=== PATIENT | female | born 1965 | race Caucasian/White ===

== ENCOUNTER 2020-10-09 23:20 | Emergency (ER) | payer OTHER, SELFPAY ==
--- NOTE | ~2020-10-09 | XR_ITS ---
EXAMINATION: XR knee RT min 4V DATE: 10/09/2020 23:40 INDICATION: Posterior right knee pain post fall. TECHNIQUE: Anteroposterior, 2 oblique and crosstable lateral views of the right knee were obtained COMPARISON: None. FINDINGS: Right total knee arthroplasty without patellar resurfacing which appears well seated in near-anatomic alignment. No periprosthetic lucency to suggest loosening. No evident fracture. There is however a s mall right knee joint effusion with well-defined linear anterior margin appearing suspicious for a la yering lipohemarthrosis. Soft tissues are otherwise unremarkable. IMPRESSION: 1. Right total knee arthroplasty with no evident acute osseous abnormality. There is however a possib le layering lipohemarthrosis raising concern for an occult fracture. Would recommend CT for further e valuation. Reviewed, dictated and finalized at location A. OR INSTRUCTOR IMPRESSION: 1. Right total knee arthroplasty with no evident acute osseous abnormality. The re is however a possible layering lipohemarthrosis raising concern for an occul t fracture. Would recommend CT for further evaluation.
--- NOTE | ~2020-10-09 | CT_ITS ---
EXAMINATION: CT knee RT wo con DATE: 10/10/2020 00:28 INDICATION: Right knee pain. TECHNIQUE: Computed tomography (CT) of the right knee was performed without intravenous contrast. The dose-length product was 674.84 mGy-cm. Automated exposure control and iterative reconstruction techn ique were employed. COMPARISON: Right knee series dated 10/09/2020 FINDINGS: There is right total knee arthroplasty. No fracture or traumatic malalignment. Prosthesis well seated. Orthopedic hardware creates significant streak artifact. Small right knee eff usion. No lipohemarthrosis. IMPRESSION: 1. No acute fracture. Reviewed, dictated and finalized at location B. STOCK AUCTIONEER IMPRESSION: 1. No acute fracture.
[2020-10-09 23:20] VITALS: BP 128/77; PULSE 77; RESP 18; TEMP 36.4; O2SAT 99
--- NOTE | 2020-10-09 23:24 | ED.FALL ---
HPI - Fall General Chief Complaint: Fall Stated Complaint: fall from ladder History of Present Illness HPI Narrative: Climbing down a ladder and missed the last step. [place] the right knee bend to the right side. Severe pain. Unable to bear weight. Previous knee replacement on that side. Denies additional pain or injury. Related Data Allergies Allergy/AdvReac Type Severity Reaction Status Date / Time fluoxetine Allergy Mild eye Verified 10/13/20 10:26 twitching Penicillins Allergy Mild hives Verified 10/13/20 10:26 Review of Systems Review of Systems: All systems reviewed & are unremarkable except as noted in HPI and below Constitutional: Constitutional: Denies fever(s) Cardiovascular: Cardiovascular: Denies chest pain Respiratory: Respiratory: Denies dyspnea Gastrointestinal: Gastrointestinal: Denies nausea Musculoskeletal: Musculoskeletal: Denies back pain Neurologic: Denies numbness and Denies weakness PMFSH Past Medical History Medical History CAD (coronary artery disease) Chronic headaches Generalized anxiety disorder HTN (hypertension) Major depressive disorder, recurrent, moderate Mixed hyperlipidemia Osteoarthritis Surgical History Surgical History H/O heart artery stent History of delivery History of laparoscopic cholecystectomy History of total hysterectomy Status post right partial knee replacement Family History Family History Other Hypertension Social History Social History Social History: Smoking packs per day: 0.25 Smoking cigarettes per day: 5.0 Years smoked: 30 Smoking pack-years: 7.50 Smoking status: Light tobacco smoker Tobacco type: cigarettes Second hand tobacco smoke exposure: Yes Alcohol intake: never Substance use: never Substance use type: does not use Living arrangements: with family Occupation/Education: occupation Gender identity (if verbalized by the patient): Female Sexual Orientation (if Verbalized by the Patient): Straight or Heterosexual Exam Const: General: no acute distress and alert Nutritional Appearance: well nourished Orientation/consciousness: patient oriented x3 HENMT: Head: normal to inspection Resp: Effort & Inspection: normal respiratory effort Auscultation: clear to auscultation bilaterally Cardio: Rate: regular rate Rhythm: regular rhythm Neuro: General: patient oriented x3, moves all extremities and no focal motor deficits Speech: normal speech Extrem: Other: Tenderness over the lateral joint line on the right knee. No obvious deformity. Not tolerating ROM. Course Vital Signs Vital signs: Vital Signs Temperature 36.4 C L 10/09/20 23:20 Pulse Rate 77 10/09/20 23:20 Respiratory Rate 18 10/09/20 23:20 Blood Pressure 128/77 10/09/20 23:20 Pulse Oximetry 99 10/09/20 23:20 Temperature 36.4 C L 10/09/20 23:20 Pulse Rate 78 10/10/20 02:10 Respiratory Rate 17 10/10/20 02:10 Blood Pressure 114/94 H 10/10/20 02:10 Pulse Oximetry 98 10/10/20 02:10 MDM - Fall MDM Narrative Medical decision making narrative: X-ray concerning for possible occult fracture. CT negative. Pain improving and able to ambulate. Differential Diagnosis Differential diagnosis: Likely other (Knee sprain, fracture, contusion) Medical Records Attestation: I reviewed the patient's medical records. Imaging Data Radiologist's impression: ITS Impressions Knee X-Ray 10/09/20 23:54 IMPRESSION: 1. Right total knee arthroplasty with no evident acute osseous abnormality. There is however a possible layering lipohemarthrosis raising concern for an occult fracture. Would recommend CT for further evaluation. Knee CT 10/10/20 08:02 IMPRESSION: 1. No ac
--- NOTE | 2020-10-09 23:33 | PC.NURSE ---
Patient to Radiology
--- NOTE | 2020-10-10 00:24 | PC.NURSE ---
Patient to CT
[2020-10-10 02:10] VITALS: BP 114/94; PULSE 78; RESP 17; O2SAT 98
== END 2020-10-10 02:11 | disposition home or self-care (01) ==
PROVIDERS: Emergency Provider Emergency Medicine; PCP Family Medicine
DX: S83.91XA Sprain of unspecified site of right knee, initial encounter (principal); I25.10 Atherosclerotic heart disease of native coronary artery without angina pectoris; I10 Essential (primary) hypertension; E78.2 Mixed hyperlipidemia; M19.90 Unspecified osteoarthritis, unspecified site; Z95.5 Presence of coronary angioplasty implant and graft; Z96.651 Presence of right artificial knee joint; F17.210 Nicotine dependence, cigarettes, uncomplicated; X50.9XXA Other and unspecified overexertion or strenuous movements or postures, initial encounter
CPT/HCPCS: 73564; 73700; 99284

== ENCOUNTER 2021-05-24 13:26 | Emergency (ER) | payer OTHER, SELFPAY ==
--- NOTE | ~2021-05-24 | XR_ITS ---
EXAMINATION: XR shoulder RT min 2V INDICATION: Right shoulder pain TECHNIQUE: Four views of the right shoulder are submitted. COMPARISON: None FINDINGS: Normal alignment. No fracture. Glenohumeral and acromioclavicular joint spaces are normal. Soft tissues are unremarkable. Moderate cervical spondylosis is noted. IMPRESSION: 1. No acute osseous abnormality. Reviewed, dictated and finalized at location A.
[2021-05-24 13:32] VITALS: BP 143/68; PULSE 93; RESP 16; TEMP 37; O2SAT 99
--- NOTE | 2021-05-24 13:34 | ED.GENADULT ---
HPI - General Adult General Chief complaint: Extremity Injury, Upper Stated complaint: rt shoulder injury Time Seen by Provider: 05/24/21 13:34 Source: patient Mode of arrival: ambulatory Limitations: no limitations History of Present Illness HPI narrative: 55-year-old female patient presents to the [facility] with complaints of right shoulder pain. Patient states that she tripped today and fell face forward into the mud. Patient states that she had her right arm outstretched and almost in a diving position fell forward. Patient states she was not able to get herself up when she fell and her had to help her. Patient is complaining of severe right shoulder pain and is not able to extend the shoulder. Related Data Allergies Allergy/AdvReac Type Severity Reaction Status Date / Time fluoxetine Allergy Mild eye Verified 05/24/21 13:33 twitching Penicillins Allergy Mild hives Verified 05/24/21 13:33 Review of Systems Review of Systems: Narrative: CONSTITUTIONAL: Denies fever, chills, or sweats. EYES: Denies visual changes, redness, or discharge. ENT: Denies rhinorrhea, congestion, sore throat, or otalgia. CARDIOVASCULAR: Denies chest pain, palpitations, or edema. RESPIRATORY: Denies cough or dyspnea. GASTROINTESTINAL: Denies abdominal pain, nausea, vomiting, or diarrhea. GENITOURINARY: Denies dysuria or hematuria. SKIN: Denies rash or itching. MUSCULOSKELETAL: Denies back pain, joint pain, or myalgia. Positive right shoulder pain NEUROLOGIC: Denies headache, numbness, or weakness. PSYCHIATRIC: Denies anxiety or depression. [facility] Past Medical History Medical History CAD (coronary artery disease) Chronic headaches Generalized anxiety disorder HTN (hypertension) Major depressive disorder, recurrent, moderate Mixed hyperlipidemia Osteoarthritis Surgical History Surgical History H/O heart artery stent History of delivery History of laparoscopic cholecystectomy History of total hysterectomy Status post right partial knee replacement Family History Family History Other Hypertension Social History Social History Social History: Smoking packs per day: 0.25 Smoking cigarettes per day: 5.0 Years smoked: 30 Smoking pack-years: 7.50 Smoking status: Light tobacco smoker Tobacco type: cigarettes Second hand tobacco smoke exposure: Yes Alcohol intake: never Substance use: never Substance use type: does not use Gender identity (if verbalized by the patient): Female Comments At the time of my signature I agree with nursing past medical history, surgical, social, and family history. There is no relevant family history pertinent to the presenting complaint. Exam Narrative: Exam Narrative: GENERAL: Well-appearing, well-nourished, and in no acute distress. HEAD: Normocephalic, atraumatic. EYES: PERRLA and EOMI. ENT: Nares clear, no rhinorrhea or epistaxis. Mucous membranes moist. NECK: Supple. No lymphadenopathy CHEST: Clear to auscultation. No respiratory distress. HEART: Regular rate and rhythm. No murmur heard. Normal peripheral pulses. ABDOMEN: Soft, nontender, nondistended, normal active bowel sounds. EXTREMITIES: The R shoulder is without obvious asymmetry or deformity when compared to the L shoulder. No surface trauma, ecchymosis, crepitus. No bony deformity or prominence of the humeral head No erythema, warmth, swelling. tenderness to palpation to the anterior shoulder and clavicle, A to C joint, no tenderness to the acromion, scapula or humeral head. No tenderness to palpation of the bicipital groove or soft tissues. No tenderness to palpation of the muscles of the sterncleidomastoid, pectorals, biceps/triceps, deltoid, trapezius, rhomboid, latissimus d
== END 2021-05-24 14:10 | disposition home or self-care (01) ==
PROVIDERS: Emergency Provider Nurse Practitioner Family; PCP Family Medicine
DX: M25.511 Pain in right shoulder (principal); W01.0XXA Fall on same level from slipping, tripping and stumbling without subsequent striking against object, initial encounter; I25.10 Atherosclerotic heart disease of native coronary artery without angina pectoris; I10 Essential (primary) hypertension; E78.2 Mixed hyperlipidemia; M19.90 Unspecified osteoarthritis, unspecified site; Z95.5 Presence of coronary angioplasty implant and graft; Z96.651 Presence of right artificial knee joint
CPT/HCPCS: 73030; 99213; A4565; G0463

== ENCOUNTER 2021-06-05 08:12 | Outpatient (CLI) | payer OTHER, SELFPAY ==
--- NOTE | ~2021-06-05 | CT_ITS ---
EXAMINATION: CT shoulder RT wo con DATE: 06/05/2021 08:38 INDICATION: Right shoulder pain and limited range of motion post fall onto outstretched arm TECHNIQUE: High resolution computed tomography (CT) of the right shoulder was performed without intra venous contrast. Additional sagittal and coronal reconstructions were performed. Automated exposure c ontrol and iterative reconstruction technique were employed. The dose-length product was 451.45 mGy-c m. COMPARISON: None FINDINGS: Bone alignment is normal. No fracture. There is subtle chondrocalcinosis at the right glenoid labrum. Minimal osteoarthritis at the right acromioclavicular and glenohumeral joints. No right shoulder shree nt effusion. No evident muscular atrophy of the rotator cuff or shoulder girdle. No evident fat stran ding about the right shoulder. No pathologically enlarged right axillary lymphadenopathy. Mild parase ptal emphysema at the right upper lobe. IMPRESSION: 1. Minimal right acromioclavicular and glenohumeral osteoarthritis. No joint effusion or acute osseou s abnormality. Reviewed, dictated and finalized at location A. IMPRESSION: 1. Minimal right acromioclavicular and glenohumeral osteoarthritis. No joint ef fusion or acute osseous abnormality.
== END 2021-06-05 08:13 ==
PROVIDERS: PCP Family Medicine; Visit Provider Orthopaedic Surgery
DX: S46.001A Unspecified injury of muscle(s) and tendon(s) of the rotator cuff of right shoulder, initial encounter (principal); X58.XXXA Exposure to other specified factors, initial encounter
CPT/HCPCS: 73200

== ENCOUNTER 2021-12-28 08:23 | Outpatient (CLI) | payer OTHER, SELFPAY ==
[2021-12-28 09:20] LABS: Basophils Absolute Auto 0.1 K/mm3 (0.0-0.1); Basophils Percent Auto 0.4 % (0.2-1.2); Eosinophils Absolute Auto 0.1 K/mm3 (0-0.3); Eosinophils Percent Auto 0.6 % (0-4.4); Hematocrit 47.3 % (37.0-47.0); Hemoglobin 15.6 g/dL (12.0-15.0); Immature Granulocyte Absolute 0.08 K/mm3 (0.00-0.031); Immature Granulocyte Percent A 0.6 % (0-0.5); Lymphocytes Absolute Auto 3.26 K/mm3 (0.9-3.2); Lymphocytes Percent Auto 22.8 % (18.3-44.2); Mean Corpuscular Hemoglobin 32.4 pg (26-34); Mean Corpuscular Volume 98.1 fl (80-100); Mean Platelet Volume 9.3 fl (7.4-10.4); Monocytes Absolute Auto 0.9 K/mm3 (0.1-0.6); Monocytes Percent Auto 5.9 % (2.6-8.5); Neutrophils Percent Auto 69.7 % (45.5-73.1); Platelet Count Result 393 k/mm3 (150-375); Red Blood Count 4.82 M/mm3 (4.2-5.4); Red Cell Distribution Width 13.2 % (11.5-14.5); White Blood Count 14.3 K/mm3 (4.5-10.0)
[2021-12-28 09:31] LABS: Alanine Aminotransferase 28 U/L (4-35); Albumin Level 4.5 g/dL (3.5-5.1); Alkaline Phosphatase 114 U/L (38-126); Anion Gap 6 mmol/L (8-16); Aspartate Amino Transferase 31 U/L (14-36); Bilirubin,Total 0.5 mg/dL (0.2-1.3); Blood Urea Nitrogen 20 mg/dL (7-17); Carbon Dioxide 28 mmol/L (22-30); Chloride 103 mmol/L (98-107); Cholesterol 269 mg/dL (0-200); Estimated Glomerular Filt Rate > 60; Glucose 95 mg/dL (65-110); HDL Direct 41 mg/dL; Potassium 3.9 mmol/L (3.4-5.0); Sodium 137 mmol/L (137-145); Triglycerides 247 mg/dL (<150)
[2021-12-28 10:13] LABS: LDL Cholesterol Direct 151 mg/dL
== END 2021-12-28 08:24 | disposition home or self-care (01) ==
PROVIDERS: PCP Family Medicine; Visit Provider Nurse Practitioner Gerontology
DX: E78.2 Mixed hyperlipidemia (principal); I10 Essential (primary) hypertension
CPT/HCPCS: 36415; 80053; 80061; 85025

== ENCOUNTER 2022-01-13 13:47 | Outpatient (CLI) | payer OTHER, SELFPAY ==
--- NOTE | ~2022-01-13 | CT_ITS ---
EXAMINATION: CT lung screening DATE: 01/13/2022 14:03 INDICATION: Personal history of nicotine dependence, current smoker with 20 pack year history TECHNIQUE: Computed tomography (CT) of the chest was performed without intravenous contrast. The dose -length product (DLP) was 245.94 mGy-cm. Automated exposure control and iterative reconstruction tech [facility] were employed. COMPARISON: 01/26/2018 FINDINGS: There is mild emphysema. There is a chronic 1.4 cm subsolid nodule of the right lower lobe. Also seen is a chronic 4 mm nodule in association with the minor fissure on the right. There is a 12 mm solid nodule of the right lower lobe on image 107. There is no pleural effusion or pneumothorax. There is lipomatous hypertrophy of the interatrial septum. No pathologically enlarged thoracic lymph nodes are identified. The heart size is normal. Calcified coronary artery atherosclerosis is noted. T here is moderate thoracic spondylosis. IMPRESSION: 1. Lung-RADS category 2: Benign appearance or behavior. Continue annual screening with noncontrast lo w-dose chest CT in 12 months. Reviewed, dictated and finalized at location B. ER INFLATED BALL IMPRESSION: 1. Lung-RADS category 2: Benign appearance or behavior. Continue annual screeni ng with noncontrast low-dose chest CT in 12 months.
== END 2022-01-13 13:48 ==
PROVIDERS: Visit Provider Nurse Practitioner Gerontology
DX: Z12.2 Encounter for screening for malignant neoplasm of respiratory organs (principal); Z87.891 Personal history of nicotine dependence
CPT/HCPCS: 71271

== ENCOUNTER 2022-08-25 07:19 | Outpatient (CLI) | payer OTHER, SELFPAY ==
[2022-08-25 08:19] LABS: Basophils Absolute Auto 0.1 K/mm3 (0.0-0.1); Basophils Percent Auto 0.6 % (0.2-1.2); Eosinophils Absolute Auto 0.1 K/mm3 (0-0.3); Eosinophils Percent Auto 1.2 % (0-4.4); Hematocrit 42.6 % (37.0-47.0); Hemoglobin 14.3 g/dL (12.0-15.0); Immature Granulocyte Absolute 0.04 K/mm3 (0.00-0.031); Immature Granulocyte Percent A 0.4 % (0-0.5); Lymphocytes Absolute Auto 2.97 K/mm3 (0.9-3.2); Lymphocytes Percent Auto 29.6 % (18.3-44.2); Mean Corpuscular HGB Conc 33.6 g/dl (32-36); Mean Corpuscular Hemoglobin 33.3 pg (26-34); Mean Corpuscular Volume 99.3 fl (80-100); Mean Platelet Volume 9.5 fl (7.4-10.4); Monocytes Absolute Auto 0.6 K/mm3 (0.1-0.6); Monocytes Percent Auto 6.3 % (2.6-8.5); Neutrophils Absolute Auto 6.2 K/mm3 (1.3-6.7); Neutrophils Percent Auto 61.9 % (45.5-73.1); Platelet Count Result 388 k/mm3 (150-375); Red Blood Count 4.29 M/mm3 (4.2-5.4); Red Cell Distribution Width 12.9 % (11.5-14.5); White Blood Count 10.1 K/mm3 (4.5-10.0)
[2022-08-25 08:33] LABS: Alanine Aminotransferase 19 U/L (6-35); Albumin Level 4.3 g/dL (3.5-5.1); Alkaline Phosphatase 105 U/L (38-126); Anion Gap 7 mmol/L (8-16); Aspartate Amino Transferase 20 U/L (14-36); Bilirubin,Total 0.4 mg/dL (0.2-1.3); Blood Urea Nitrogen 17 mg/dL (7-17); Calcium 10.1 mg/dL (8.4-10.2); Carbon Dioxide 27 mmol/L (22-30); Chloride 103 mmol/L (98-107); Cholesterol 251 mg/dL (0-200); Estimated Glomerular Filt Rate > 60; Glucose 100 mg/dL (65-110); HDL Direct 37 mg/dL; Potassium 3.4 mmol/L (3.4-5.0); Sodium 137 mmol/L (137-145); Triglycerides 217 mg/dL (<150)
[2022-08-25 08:43] LABS: LDL Cholesterol Direct 147 mg/dL
[2022-08-25 09:02] LABS: Thyroid Stimulating Hormone 0.721 uIU/mL (0.465-4.680); Total Triiodothyronine (T3) 1.28 NG/ML (0.97-1.69)
[2022-08-25 09:22] LABS: Free T4 Free Thyroxine 0.96 ng/mL (0.78-2.19)
== END 2022-08-25 07:20 | disposition home or self-care (01) ==
LOC: ANHLAB 07:20
PROVIDERS: PCP Family Medicine; Visit Provider Nurse Practitioner Gerontology
DX: D72.829 Elevated white blood cell count, unspecified (principal); E78.2 Mixed hyperlipidemia; I10 Essential (primary) hypertension; I25.10 Atherosclerotic heart disease of native coronary artery without angina pectoris; R45.86 Emotional lability; R51.9 Headache, unspecified
CPT/HCPCS: 36415; 80053; 80061; 84439; 84443; 84480; 85025

== ENCOUNTER 2022-11-09 10:09 | Outpatient (CLI) | payer OTHER, SELFPAY ==
--- NOTE | ~2022-11-09 | US_ITS ---
Ultrasound of the Abdominal Aorta INDICATION: Abdominal aorta, tobacco abuse TECHNIQUE: Grayscale, color Doppler, and pulsed Doppler images of the aorta and common iliac arteries were obtained. COMPARISON: None. FINDINGS: Maximum vascular dimensions are as follows: Proximal aorta: 2.7 cm Mid aorta: 2.3 cm Distal aorta: 1.9 cm Right common iliac artery: 1.1 cm Left common iliac artery: 1.1 cm There is no evidence of abdominal aortic aneurysm. IMPRESSION: No abdominal aortic aneurysm. Reviewed, dictated and finalized at location M. CE OFFICER [employer]ION
== END 2022-11-09 10:10 | disposition home or self-care (01) ==
PROVIDERS: PCP Family Medicine; Visit Provider Internal Medicine Cardiovascular Disease
DX: Z72.0 Tobacco use (principal)
CPT/HCPCS: 76775

== ENCOUNTER 2023-01-04 10:27 | Outpatient (CLI) | payer OTHER, SELFPAY ==
[2023-01-04 19:23] LABS: Alanine Aminotransferase 22 U/L (6-35); Albumin Level 4.4 g/dL (3.5-5.1); Alkaline Phosphatase 96 U/L (38-126); Anion Gap 3 mmol/L (8-16); Aspartate Amino Transferase 38 U/L (14-36); Bilirubin,Total 0.6 mg/dL (0.2-1.3); Blood Urea Nitrogen 19 mg/dL (7-17); Calcium 10.1 mg/dL (8.4-10.2); Carbon Dioxide 32 mmol/L (22-30); Chloride 101 mmol/L (98-107); Cholesterol 157 mg/dL (0-200); Estimated Glomerular Filt Rate > 60; Glucose 77 mg/dL (65-110); HDL Direct 40 mg/dL; Potassium 3.9 mmol/L (3.4-5.0); Sodium 136 mmol/L (137-145); Triglycerides 201 mg/dL (<150)
[2023-01-04 19:34] LABS: LDL Cholesterol Direct 68 mg/dL
[2023-01-04 19:37] LABS: Vitamin D 25 Hydroxy 31.8 ng/mL
[2023-01-04 20:08] LABS: Basophils Absolute Auto 0.1 K/mm3 (0.0-0.1); Basophils Percent Auto 0.8 % (0.2-1.2); Eosinophils Absolute Auto 0.2 K/mm3 (0-0.3); Eosinophils Percent Auto 1.4 % (0-4.4); Hematocrit 44.7 % (37.0-47.0); Hemoglobin 14.8 g/dL (12.0-15.0); Immature Granulocyte Absolute 0.04 K/mm3 (0.00-0.031); Immature Granulocyte Percent A 0.3 % (0-0.5); Lymphocytes Absolute Auto 3.75 K/mm3 (0.9-3.2); Lymphocytes Percent Auto 31.5 % (18.3-44.2); Mean Corpuscular HGB Conc 33.1 g/dl (32-36); Mean Corpuscular Hemoglobin 32.9 pg (26-34); Mean Corpuscular Volume 99.3 fl (80-100); Mean Platelet Volume 9.5 fl (7.4-10.4); Monocytes Absolute Auto 0.8 K/mm3 (0.1-0.6); Monocytes Percent Auto 6.6 % (2.6-8.5); Neutrophils Absolute Auto 7.1 K/mm3 (1.3-6.7); Neutrophils Percent Auto 59.4 % (45.5-73.1); Platelet Count Result 383 k/mm3 (150-375); Red Cell Distribution Width 12.7 % (11.5-14.5); White Blood Count 11.9 K/mm3 (4.5-10.0)
== END 2023-01-04 10:28 | disposition home or self-care (01) ==
LOC: ANHGOSHLAB 10:29
PROVIDERS: PCP Family Medicine; Visit Provider Nurse Practitioner Family
DX: I10 Essential (primary) hypertension (principal); E55.9 Vitamin D deficiency, unspecified; E78.5 Hyperlipidemia, unspecified
CPT/HCPCS: 36415; 80053; 80061; 82306; 85025

== ENCOUNTER 2023-01-13 08:58 | Outpatient (CLI) | payer OTHER, SELFPAY ==
--- NOTE | ~2023-01-13 | CT_ITS ---
CT Scan of the Chest without Contrast: Clinical Indication: Lung cancer screening, lung nodules, smoking history Technique: Contiguous sections were acquired throughout the chest without intravenous contrast. Dose reduction technique was used on this scan by utilizing automated exposure control and iterative recon struction technique. The dose-length product (DLP) was 177.19 mGy-cm. COMPARISON: 01/26/2018 and 01/13/2022 Findings: There is no evidence of any significant mediastinal, hilar or axillary lymphadenopathy. There are ath erosclerotic calcifications of the aorta. Coronary artery calcifications are also present. There is no evidence of pleural or pericardial effusion. Stable nodule in the anteroinferior right upper lobe. Minimal emphysematous or interstitial changes a re similar to prior exam.. Images through the upper abdomen reveal stable left adrenal adenoma. Impression: Lung-RADS 2: Benign appearance. 12 month follow-up screening CT advised. Stable anteroinferior upper lobe nodule. Stable left adrenal adenoma. Reviewed, dictated and finalized at location . 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 12 month follow-up screening CT advised. Stable anteroinferior upper lobe nodule. Stable left adrenal adenoma.
--- NOTE | 2023-01-13 16:48 | WPDPFTINT ---
PFT Procedure Performed PFT Procedure Performed Spirometry with Pre/Post Bronchodilator Plethysmography (Lung Vol) Diffusing Cap (DLCO) Flow Vol Loop PFT Interpretation This is a pulmonary function test with pre and post-bronchodilator spirometry, plethysmography and diffusing capacity. The test was performed and results interpreted in accordance with the 2019 and 2005 ATS/ERS Task Force guidelines respectively using the Global Lung Function Initiative-2012 reference equations. Patient demonstrated good effort and cooperation. Reproducibility criteria were met. The quality of the pre bronchodilator spirometry maneuver was Grade B and post bronchodilator spirometry maneuver was Grade B. Findings: Spirometry: The contour the inspiratory and expiratory flow tracing are normal. The pre bronchodilator FVC is 3.61 L, 96% predicted. The pre bronchodilator FEV1 is 2.8 L, 98% predicted. The pre bronchodilator FEV1: FVC ratio was 80%. The post bronchodilator FVC is 3.54 L, representing a 2% decrease. The post bronchodilator FEV1 is 2.95 L, representing a 2% increase. The post bronchodilator FEV1: FVC ratio was 83%. Plethysmography: The total lung capacity is 5.13 L, 89% predicted. The functional residual capacity is 2.54 L, 77% predicted. The residual volume is 1.51 L, is 68% predicted. Diffusing capacity: The diffusing capacity unadjusted for hemoglobin and carboxyhemoglobin is 15.7, 66% predicted. The diffusing capacity adjusted for alveolar volume is 3.61, 85% predicted. Impression: The spirometry is normal without evidence of an obstructive abnormality. There is no significant improvement after inhaling a single dose of albuterol. The lung volumes are normal. The diffusing capacity unadjusted for hemoglobin and carboxyhemoglobin is mildly decreased and normalizes when adjusted for alveolar volume. There are no prior studies for comparison
== END 2023-01-13 08:59 | disposition home or self-care (01) ==
PROVIDERS: PCP Family Medicine; Visit Provider Internal Medicine Pulmonary Disease
DX: Z12.2 Encounter for screening for malignant neoplasm of respiratory organs (principal); R91.8 Other nonspecific abnormal finding of lung field; F17.210 Nicotine dependence, cigarettes, uncomplicated; D35.02 Benign neoplasm of left adrenal gland
CPT/HCPCS: 71271; 94060; 94726; 94729

== ENCOUNTER 2023-02-20 10:17 | Emergency (ER) | payer OTHER, SELFPAY ==
[2023-02-20 10:26] VITALS: BP 148/82; PULSE 78; RESP 16; TEMP 36.6; O2SAT 99
--- NOTE | 2023-02-20 10:28 | ED.UPPEXIN ---
HPI - Extremity Injury (Upper) General Chief Complaint: Extremity Injury, Upper Stated Complaint: rt shoulder pain Time Seen by Provider: 02/20/23 10:28 Source: patient Mode of arrival: ambulatory Limitations: no limitations History of Present Illness HPI narrative: 57-year-old female presents with complaint of pain to left upper back radiating into left shoulder and down left arm for the past 2-3 days. Reports that pain started after sitting on hard bleachers to watch her grandson's school presentation. Patient has been taking meloxicam and ibuprofen to treat pain. Reports that she thought that meloxicam was a muscle relaxant and only takes it as needed. She has also been doing some stretching but cannot get relief of pain. Is having difficulty turning neck. No weakness to left upper extremity. All systems reviewed and negative except as noted above. Related Data Home Medications Medication Instructions Recorded Confirmed cholecalciferol (vitamin D3) 25 25 mcg PO DAILY 01/04/23 02/20/23 mcg (1,000 unit) capsule rosuvastatin 10 mg tablet (Crestor) 20 mg PO DAILY 01/04/23 02/20/23 Allergies Allergy/AdvReac Type Severity Reaction Status Date / Time fluoxetine Allergy Mild eye Verified 02/20/23 10:29 twitching Penicillins Allergy Mild hives Verified 02/20/23 10:29 Review of Systems Review of Systems: CONSTITUTIONAL: Denies fever, chills, or sweats. EYES: Denies visual changes, redness, or discharge. ENT: Denies rhinorrhea, congestion, sore throat, or otalgia. CARDIOVASCULAR: Denies chest pain, palpitations, or edema. RESPIRATORY: Denies cough or dyspnea. GASTROINTESTINAL: Denies abdominal pain, nausea, vomiting, or diarrhea. GENITOURINARY: Denies dysuria or hematuria. SKIN: Denies rash or itching. MUSCULOSKELETAL: Left upper back, neck and left shoulder pain. NEUROLOGIC: Denies headache, numbness, or weakness. PSYCHIATRIC: Denies anxiety or depression. All other systems reviewed are negative, except as documented in HPI. [facility] Past Medical History Medical History CAD (coronary artery disease) Chronic headaches Generalized anxiety disorder HTN (hypertension) Insomnia Mixed hyperlipidemia Mood swings Osteoarthritis Right shoulder strain Wears glasses Surgical History Surgical History H/O heart artery stent (~2014) History of delivery (~1991) History of laparoscopic cholecystectomy (~2018) History of tonsillectomy (~1978) History of total hysterectomy (~1994) History of total knee arthroplasty (~07/2014) Right Status post right partial knee replacement (~2013) Family History Family History Other Hypertension Social History Social History Social History: , 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 Her is getting chemo for colon cancer. Years smoked: 30 Smoking status: Current every day smoker Tobacco type: cigarettes Second hand tobacco smoke exposure: Yes Alcohol intake: never Substance use: never Substance use type: does not use Lack of Transportation: No Lack of Food: Never True Current Housing: I Have Housing Concerned About Future Housing: No Difficulty Paying Gas/Electric Bills: No Difficulty Paying for Meds: No Currently Unemployed: No Difficulty w/ Childcare or Family Care: No Living arrangements: with family Additional living arrangements comments: Spouse Occupation/Education: occupation Additional occupation/education comments: [employer] Gender identity (if verbalized by the patient): Female Sexual Orientation (if Verbalized by the Patient): Straight or Heterosexual Comments At time of signature, agree with nursing past medical, surgical, social and family history. There is no
[2023-02-20] MEDS: KETOROLAC 30 MG/ML VIAL (*BKC) IM (10:45)
== END 2023-02-20 10:57 | disposition home or self-care (01) ==
PROVIDERS: Emergency Provider Nurse Practitioner Family; PCP Family Medicine
DX: S29.012A Strain of muscle and tendon of back wall of thorax, initial encounter (principal); X50.1XXA Overexertion from prolonged static or awkward postures, initial encounter; I25.10 Atherosclerotic heart disease of native coronary artery without angina pectoris; I10 Essential (primary) hypertension; E78.2 Mixed hyperlipidemia; M19.90 Unspecified osteoarthritis, unspecified site; Z95.5 Presence of coronary angioplasty implant and graft; Z96.651 Presence of right artificial knee joint; F41.1 Generalized anxiety disorder
CPT/HCPCS: 96372; 99213; G0463; J1885

== ENCOUNTER → 2023-03-02 10:36 | Outpatient (CLI) | payer OTHER, SELFPAY ==
--- NOTE | ~2023-03-02 | XR_ITS ---
EXAMINATION:XR_[id number]_CR DATE: 03/02/2023 10:48 INDICATION: Neck pain TECHNIQUE: AP, lateral, lateral swimmers and odontoid views of the cervical spine are provided. COMPARISON: None FINDINGS: There are 2 mm of anterolisthesis of C3 on C4. The odontoid process is intact. No fracture is identified. The vertebral body heights are normal. There is mild loss of intervertebral disc space height at C4-5, C5-6, and C6-7. Small degenerative osteophytes project from the anterior endplates o f multiple vertebral bodies. There is multilevel moderate to severe facet and uncovertebral joint ost eoarthritis. Prevertebral soft tissues are normal. IMPRESSION: 1. Moderate cervical spondylosis without acute findings Reviewed, dictated and finalized at location B.
== END ==
PROVIDERS: PCP Family Medicine; Visit Provider Family Medicine
DX: M47.812 Spondylosis without myelopathy or radiculopathy, cervical region (principal)
CPT/HCPCS: 72040

== ENCOUNTER 2023-03-16 09:35 | Outpatient (RCR) | payer OTHER, SELFPAY ==
--- NOTE | 2023-03-16 11:52 | PTOPEVAL1 ---
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 She states 2 days later she woke up and her shoulder hurt so bad and felt so tight that she could not move it. She reports this has gotten progressively better over the last 2 weeks. She is down to 800 mg of Ibuprofen a day to control her pain. She states her pain is the worst when she is not working. She reports random burning pains down the back of her L shoulder. Reported Pain Level Pain Score 0: Self Report Assessment PT Clinical Summary Kathya presents to therapy today for her initial evaluation with a diagnosis of cervicalgia with radiculopathy. Per history, pt may have overworked her L shoulder causing temporary muscle irritation and inflammation. Today she demonstrates active cervical and shoulder ROM that is WNL and does not increase her pain. She demonstrates negative upper limb tension tests evan . There is moderate amounts of tenderness to palpation along the medial scapular border and increased muscle soreness with serratus muscle activation. She demonstrates decreased scapular strength on her L side. Pts mobility is only mildly limited and her pain decreases with increased motion. She was instructed in a home stretching and exercise program to target her scapular stabilizers. She will follow up in one month if her symptoms do not continue to decrease or if she is not back to her baseline by then. Pt is agreeable to this POC. Plan of Care Interventions Manual Therapy,Neuro Re-education,Patient/ Caregiver Educati,Therapeutic Activities, Therapeutic Exercise PT Services Indicated Yes Treatment Frequency and follow up in 1 month if needed Duration These treatments will address the objective and functional deficits as defined above. The patient will be advanced safely and appropriately in order for the patient to progress towards his/her prior level of function. Additional exercises will be introduced and as well as a comprehensive home exercise program upon discharge, if needed, ?to ensure carryover of functional gains achieved in the clinic. This treatment plan has been reviewed and agreement upon by the patient.
--- NOTE | 2023-04-25 11:55 | PTOPDC ---
Assessment and note entered by Linda Jackson, PT, DPT Evaluation Information Assessment Status Discharge - Pt Not Present Diagnosis neck pain with radiculopathy Onset 1 month Subjective Information Called and spoke with patients . He reports she is doing much better and has been meaning to call and follow up . States she does not need to continue therapy. Assessment PT Clinical Summary Kathya was evaluated on 03/16/23 and did not complete any formal treatments. She will be discharged at this time. If she needs additional therapy at a later she will need a new order.
== END 2023-04-25 12:46 | disposition home or self-care (01) ==
LOC: ANHGOSHPT 09:35
PROVIDERS: PCP Family Medicine; Visit Provider Family Medicine
DX: M54.12 Radiculopathy, cervical region (principal); M54.2 Cervicalgia
CPT/HCPCS: 97110; 97112; 97161

== ENCOUNTER 2023-03-20 12:16 | Emergency (ER) | payer OTHER, SELFPAY ==
--- NOTE | 2023-03-20 12:21 | ED.URI ---
HPI - URI/Sore Throat General Chief Complaint: Upper Respiratory Infection Stated Complaint: cough Time Seen by Provider: 03/20/23 12:21 Source: patient Mode of arrival: ambulatory Limitations: no limitations History of Present Illness HPI Narrative: Kathya is a 57-year-old female patient presenting to the clinic today with complaints of a cough x4-5 days. She reports no known fever or chills. Did have some nasal congestion for the past few days however she has taken some cbmo-[id number] cough cold medications that helped with nasal drainage but now she has lost her voice and cannot stop coughing. Reports that the cough is nonproductive. Feels as though she is having wheezing and rattling in her chest. Denies any fever or chills. Is short of breath when she is coughing. Reports she has mild emphysema/COPD MD elicited complaint: cough and nasal congestion Related Data Home Medications Medication Instructions Recorded Confirmed cholecalciferol (vitamin D3) 25 25 mcg PO DAILY 01/04/23 03/20/23 mcg (1,000 unit) capsule rosuvastatin 10 mg tablet (Crestor) 20 mg PO DAILY 01/04/23 03/20/23 fluoxetine 20 mg capsule 20 mg PO DAILY 03/02/23 03/20/23 Allergies Allergy/AdvReac Type Severity Reaction Status Date / Time fluoxetine Allergy Mild eye Verified 03/20/23 12:22 twitching Penicillins Allergy Mild hives Verified 03/20/23 12:22 Review of Systems Review of Systems: Pertinent positives per HPI. Patient denies any fever, chills, rash, headache, visual changes, dizziness, chest pain, palpitations, nausea, vomiting, diarrhea, constipation, abdominal pain, or any urinary issues. [facility] Past Medical History Medical History CAD (coronary artery disease) Chronic headaches Generalized anxiety disorder HTN (hypertension) Insomnia Mixed hyperlipidemia Mood swings Osteoarthritis Right shoulder strain Wears glasses Surgical History Surgical History H/O heart artery stent (~2014) History of delivery (~1991) History of laparoscopic cholecystectomy (~2018) History of tonsillectomy (~1978) History of total hysterectomy (~1994) History of total knee arthroplasty (~07/2014) Right Status post right partial knee replacement (~2013) Family History Family History Other Hypertension Social History Social History Social History: , 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 Her is getting chemo for colon cancer. Years smoked: 30 Smoking status: Current every day smoker Tobacco type: cigarettes Second hand tobacco smoke exposure: Yes Alcohol intake: never Substance use: never Substance use type: does not use Lack of Transportation: No Lack of Food: Never True Current Housing: I Have Housing Concerned About Future Housing: No Difficulty Paying Gas/Electric Bills: No Difficulty Paying for Meds: No Currently Unemployed: No Difficulty w/ Childcare or Family Care: No Living arrangements: with family Additional living arrangements comments: Spouse Occupation/Education: occupation Additional occupation/education comments: [employer] Gender identity (if verbalized by the patient): Female Sexual Orientation (if Verbalized by the Patient): Straight or Heterosexual Comments At the time of my signature, I reviewed and agree with the nursing past medical, surgical, social, and family history. There is no relevant family history pertinent to the patient complaint. Exam Narrative: General: Well-developed, well nourished, in no apparent distress Head: Normocephalic, atraumatic Eyes: Pupils equally round and reactive to light bilaterally, EOM intact, sclera and conjunctive clear, no discharge, lid
[2023-03-20 12:22] VITALS: BP 158/78; PULSE 76; RESP 16; TEMP 36.4; O2SAT 97
[2023-03-20 12:24] VITALS: BP 158/78; PULSE 76; RESP 16; TEMP 36.4; O2SAT 97
== END 2023-03-20 12:35 | disposition home or self-care (01) ==
PROVIDERS: Emergency Provider Nurse Practitioner Family; PCP Family Medicine
DX: J20.9 Acute bronchitis, unspecified (principal); F17.210 Nicotine dependence, cigarettes, uncomplicated; I25.10 Atherosclerotic heart disease of native coronary artery without angina pectoris; I10 Essential (primary) hypertension; E78.2 Mixed hyperlipidemia; M19.90 Unspecified osteoarthritis, unspecified site; Z95.5 Presence of coronary angioplasty implant and graft; Z96.651 Presence of right artificial knee joint
CPT/HCPCS: 99213; G0463

== ENCOUNTER 2023-10-04 09:49 | Outpatient (CLI) | payer OTHER, SELFPAY ==
[2023-10-04 13:31] LABS: Basophils Absolute Auto 0.1 K/mm3 (0.0-0.1); Basophils Percent Auto 0.6 % (0.2-1.2); Eosinophils Absolute Auto 0.1 K/mm3 (0-0.3); Eosinophils Percent Auto 1.1 % (0-4.4); Hematocrit 45.6 % (37.0-47.0); Hemoglobin 14.8 g/dL (12.0-15.0); Immature Granulocyte Absolute 0.05 K/mm3 (0.00-0.031); Immature Granulocyte Percent A 0.4 % (0-0.5); Lymphocytes Absolute Auto 3.72 K/mm3 (0.9-3.2); Lymphocytes Percent Auto 29.4 % (18.3-44.2); Mean Corpuscular HGB Conc 32.5 g/dl (32-36); Mean Corpuscular Hemoglobin 32.2 pg (26-34); Mean Corpuscular Volume 99.1 fl (80-100); Mean Platelet Volume 9.5 fl (7.4-10.4); Monocytes Percent Auto 7.7 % (2.6-8.5); Neutrophils Absolute Auto 7.7 K/mm3 (1.3-6.7); Neutrophils Percent Auto 60.8 % (45.5-73.1); Platelet Count Result 417 k/mm3 (150-375); Red Cell Distribution Width 12.8 % (11.5-14.5); White Blood Count 12.7 K/mm3 (4.5-10.0)
[2023-10-04 13:39] LABS: Alanine Aminotransferase 18 U/L (6-35); Albumin Level 4.4 g/dL (3.5-5.1); Alkaline Phosphatase 108 U/L (38-126); Anion Gap 10 mmol/L (8-16); Aspartate Amino Transferase 37 U/L (14-36); Bilirubin,Total 0.6 mg/dL (0.2-1.3); Blood Urea Nitrogen 21 mg/dL (7-17); Calcium 11.3 mg/dL (8.4-10.2); Carbon Dioxide 29 mmol/L (22-30); Chloride 102 mmol/L (98-107); Cholesterol 167 mg/dL (0-200); Estimated Glomerular Filt Rate > 60; Glucose 71 mg/dL (65-110); HDL Direct 42 mg/dL; Potassium 4.3 mmol/L (3.4-5.0); Sodium 141 mmol/L (137-145); Triglycerides 213 mg/dL (<150)
[2023-10-04 13:50] LABS: LDL Cholesterol Direct 84 mg/dL
[2023-10-08 15:09] LABS: Vitamin D 1,25 (OH)2 Total 67 pg/mL (18-72); Vitamin D2 1,25 (OH)2 <8 pg/mL; Vitamin D3 1,25 (OH)2 67 pg/mL
== END 2023-10-04 09:50 | disposition home or self-care (01) ==
LOC: ANHGOSHLAB 09:50
PROVIDERS: PCP Family Medicine; Visit Provider Nurse Practitioner Family
DX: Z00.00 Encounter for general adult medical examination without abnormal findings (principal); I10 Essential (primary) hypertension; E55.9 Vitamin D deficiency, unspecified
CPT/HCPCS: 36415; 80053; 80061; 82652; 84443; 85025

== ENCOUNTER 2023-10-17 11:35 | Outpatient (CLI) | payer OTHER, SELFPAY ==
[2023-10-17 12:50] LABS: Basophils Absolute Auto 0.1 K/mm3 (0.0-0.1); Basophils Percent Auto 0.5 % (0.2-1.2); Eosinophils Absolute Auto 0.2 K/mm3 (0-0.3); Hematocrit 42.1 % (37.0-47.0); Hemoglobin 14.1 g/dL (12.0-15.0); Immature Granulocyte Absolute 0.03 K/mm3 (0.00-0.031); Immature Granulocyte Percent A 0.3 % (0-0.5); Lymphocytes Absolute Auto 3.45 K/mm3 (0.9-3.2); Lymphocytes Percent Auto 30.8 % (18.3-44.2); Mean Corpuscular HGB Conc 33.5 g/dl (32-36); Mean Corpuscular Hemoglobin 32.4 pg (26-34); Mean Corpuscular Volume 96.8 fl (80-100); Mean Platelet Volume 9.1 fl (7.4-10.4); Monocytes Absolute Auto 0.9 K/mm3 (0.1-0.6); Monocytes Percent Auto 7.7 % (2.6-8.5); Neutrophils Absolute Auto 6.6 K/mm3 (1.3-6.7); Neutrophils Percent Auto 58.7 % (45.5-73.1); Platelet Count Result 391 k/mm3 (150-375); Red Blood Count 4.35 M/mm3 (4.2-5.4); Red Cell Distribution Width 12.6 % (11.5-14.5); White Blood Count 11.2 K/mm3 (4.5-10.0)
[2023-10-17 16:35] LABS: Alanine Aminotransferase 17 U/L (6-35); Albumin Level 4.1 g/dL (3.5-5.1); Alkaline Phosphatase 114 U/L (38-126); Anion Gap 6 mmol/L (8-16); Aspartate Amino Transferase 20 U/L (14-36); Bilirubin,Total 0.3 mg/dL (0.2-1.3); Blood Urea Nitrogen 18 mg/dL (7-17); CRP 0.7 mg/dL (<1.0); Calcium 10.3 mg/dL (8.4-10.2); Carbon Dioxide 27 mmol/L (22-30); Chloride 105 mmol/L (98-107); Estimated Glomerular Filt Rate > 60; Glucose 85 mg/dL (65-110); Potassium 3.8 mmol/L (3.4-5.0); Sodium 138 mmol/L (137-145)
[2023-10-17 16:47] LABS: Erythrocyte Sedimentation Rate 18 mm/hr (0-20)
[2023-10-17 18:30] LABS: Iron 36 ug/dL (37-170)
[2023-10-17 18:41] LABS: Percent Iron Saturation 12 % (20-50)
[2023-10-19 13:59] LABS: Kappa\\Lambda Light Chains 0.98 (0.26-1.65); Lambda Light Chain 20.4 mg/L (5.7-26.3)
[2023-10-20 17:52] LABS: Albumin 3.8 g/dL (3.8-4.8); Alpha 1 Globulin 0.3 g/dL (0.2-0.3); Alpha 2 Globulin 0.9 g/dL (0.5-0.9); Beta 1 Globulin 0.5 g/dL (0.4-0.6); Gamma Globulin 0.9 g/dL (0.8-1.7); Protein, Total 6.7 g/dL (6.1-8.1)
== END 2023-10-17 11:36 | disposition home or self-care (01) ==
PROVIDERS: Nurse Practitioner Family; PCP Family Medicine; Visit Provider Internal Medicine Hematology & Oncology
DX: E83.52 Hypercalcemia (principal); D72.829 Elevated white blood cell count, unspecified
CPT/HCPCS: 36415; 80053; 83540; 83550; 83883; 84155; 84165; 85025; 85652; 86038; 86140; 88184

== ENCOUNTER 2023-11-11 11:00 | Outpatient (CLI) | payer OTHER, SELFPAY ==
[2023-11-11 16:47] LABS: Vitamin D 25 Hydroxy 38.4 ng/mL
[2023-11-11 17:05] LABS: Alanine Aminotransferase 18 U/L (6-35); Albumin Level 4.2 g/dL (3.5-5.1); Alkaline Phosphatase 92 U/L (38-126); Anion Gap 9 mmol/L (8-16); Aspartate Amino Transferase 18 U/L (14-36); Bilirubin,Total 0.3 mg/dL (0.2-1.3); Blood Urea Nitrogen 13 mg/dL (7-17); Calcium 10.4 mg/dL (8.4-10.2); Carbon Dioxide 23 mmol/L (22-30); Chloride 108 mmol/L (98-107); Estimated Glomerular Filt Rate > 60; Glucose 101 mg/dL (65-110); Magnesium 2.1 mg/dL (1.6-2.3); Phosphorus 2.9 mg/dL (2.5-4.5); Potassium 3.4 mmol/L (3.4-5.0); Sodium 140 mmol/L (137-145)
== END 2023-11-11 11:01 | disposition home or self-care (01) ==
LOC: ANHLAB 11:03
PROVIDERS: Nurse Practitioner Family; PCP Family Medicine; Visit Provider Internal Medicine Hematology & Oncology
DX: E83.52 Hypercalcemia (principal)
CPT/HCPCS: 36415; 80053; 82306; 83735; 83970; 84100

== ENCOUNTER 2023-11-11 11:33 | Outpatient (CLI) | payer OTHER, SELFPAY ==
--- NOTE | ~2023-11-11 | XR_ITS ---
EXAMINATION: XR bone survey comp/metastic DATE: 11/11/2023 12:35 INDICATION: Encounter for screening for osteoporosis. Low back pain. Assess for bone lesions. TECHNIQUE: A skeletal survey was performed including AP views of the chest, abdomen and pelvis; AP an d lateral views of the cervical, thoracic and lumbar spine; AP and lateral views of the skull, and AP and lateral views of the appendicular skeleton excluding the hands and feet. COMPARISON: Cervical spine radiograph dated 02/2623, chest CT dated 01/23/2023 FINDINGS: Moderate spondylosis throughout the cervical, thoracic and lumbar spine. Lungs are clear with no foca l airspace opacities, pulmonary edema, pleural effusion or pneumothorax. Cholecystectomy clips in rig ht upper quadrant. Right total knee arthroplasty. Polyarticular osteoarthritis in the extremities of moderate severity at at the bilateral first carpal metacarpal joints, mild to moderate severity at th e lateral and patellofemoral compartment of the left knee and mild at many of the remaining joints in the bilateral upper and lower extremities. Bilateral Achilles and plantar calcaneal spurs. No suspic ious lytic or blastic bone lesions identified. IMPRESSION: 1. No suspicious lytic or blastic bone lesions throughout the axial or appendicular skeleton. 2. Degenerative skeletal changes including moderate cervical, thoracic and lumbar spondylosis and mil d to moderate polyarticular osteoarthritis in the extremities. Reviewed, dictated and finalized at location A. LING MONITOR IMPRESSION: 1. No suspicious lytic or blastic bone lesions throughout the axial or appendic ular skeleton. 2. Degenerative skeletal changes including moderate cervical, thoracic and lumb ar spondylosis and mild to moderate polyarticular osteoarthritis in the extremi ties.
== END 2023-11-11 11:34 | disposition home or self-care (01) ==
PROVIDERS: PCP Family Medicine; Visit Provider Nurse Practitioner Family
DX: Z13.820 Encounter for screening for osteoporosis (principal); M89.8X8 Other specified disorders of bone, other site; M51.36 Other intervertebral disc degeneration, lumbar region; M47.896 Other spondylosis, lumbar region
CPT/HCPCS: 77075

== ENCOUNTER 2023-11-16 07:07 | Outpatient (CLI) | payer OTHER, SELFPAY ==
--- NOTE | ~2023-11-16 | NM_ITS ---
EXAMINATION: NM bone scan whole body DATE: 11/16/2023 13:41 INDICATION: Iliac bone pain. TECHNIQUE: 26.5 mCi Tc-99m HDP was administered intravenously. Delayed whole-body scintigrams were o btained. COMPARISON: Skeletal survey 11/11/2023 FINDINGS: There is increased activity at the bilateral first carpometacarpal joints correlating with osteoarthritis on radiographs. There is a total right knee arthroplasty. The iliac bones are normal. There is increased activity in the spine correlating with spondylosis on radiographs. IMPRESSION: 1. Normal iliac bones. Reviewed, dictated and finalized at location A. AZZO INSTALLER IMPRESSION: 1. Normal iliac bones.
== END 2023-11-16 07:08 | disposition home or self-care (01) ==
PROVIDERS: PCP Family Medicine; Visit Provider Nurse Practitioner Family
DX: Z13.820 Encounter for screening for osteoporosis (principal); M89.8X8 Other specified disorders of bone, other site
CPT/HCPCS: 78306; A9503

== ENCOUNTER 2023-12-16 01:09 | Day surgery (SDC) | payer OTHER, SELFPAY ==
[2023-11-22 09:40] VITALS: BMI 35.4
--- NOTE | 2023-12-14 11:39 | SUR.PREOP ---
Patient called regarding upcoming procedure. Speak with her spouse. Reviewed preop instructions, appointment times, and procedure prep.
[2023-12-16 08:25] VITALS: BP 128/81; PULSE 84; RESP 20; TEMP 36.2; O2SAT 99; BMI 34.9
[2023-12-16] MEDS: LACTATED RINGERS 1,000 ML 150 ML IV CONT (08:39)
--- NOTE | 2023-12-16 08:46 | WPDANESEPPF ---
Anes - Initial Pre Proc Eval Procedure: Operation Date: 12/16/23 09:30 Proposed Procedures p Screening Colonoscopy - Kyler Hodges MD Date/Time: 12/16/23 08:46 Surgeon: Kyler Hodges MD Pre Op Diagnosis: neoplasm screening Patient Data Age: 58 Gender: F Height: 1.75 m Weight: 107.5 kg Last Vital Signs Temp 97.1 F L 12/16/23 08:25 Pulse 84 12/16/23 08:25 Resp 20 12/16/23 08:25 BP 128/81 12/16/23 08:25 Pulse Ox 99 12/16/23 08:25 O2 Del Method Room Air 12/16/23 08:25 Allergies Allergy/AdvReac Type Severity Reaction Status Date / Time Penicillins Allergy Mild hives Verified 11/22/23 09:39 Home Medications Medication Instructions Recorded Confirmed Type cholecalciferol (vitamin D3) 25 25 mcg PO DAILY 01/04/23 12/16/23 History mcg (1,000 unit) capsule rosuvastatin 10 mg tablet (Crestor) 20 mg PO DAILY 01/04/23 12/16/23 History albuterol sulfate 90 mcg/actuation 2 puff inhalation Q4-6H PRN 03/20/23 11/22/23 Rx aerosol inhaler shortness of breath or wheezing 30 days #8.5 grams lisinopril 10 1 tablet PO DAILY #90 tabs 08/15/23 12/16/23 Rx mg-hydrochlorothiazide 12.5 mg tablet fluoxetine 20 mg capsule 20 mg PO DAILY #90 caps 11/10/23 12/16/23 Rx Patient hx anesthesia problems: none Family hx anesthesia problems: none Results Review: All pre-operative results and documents have been reviewed as part of the pre-operative evaluation. [facility] Past Medical History Medical History CAD (coronary artery disease) Chronic headaches Generalized anxiety disorder HTN (hypertension) Insomnia Mixed hyperlipidemia Mood swings Osteoarthritis Right shoulder strain Wears glasses Surgical History Surgical History H/O heart artery stent (~2014) History of delivery (~1991) History of laparoscopic cholecystectomy (~2018) History of tonsillectomy (~1978) History of total hysterectomy (~1994) History of total knee arthroplasty (~07/2014) Right Status post right partial knee replacement (~2013) Family History Family History Other Hypertension Social History Social History Social History: , 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 Her is getting chemo for colon cancer. Years smoked: 30 Smoking status: Current every day smoker Tobacco type: cigarettes Second hand tobacco smoke exposure: Yes Alcohol intake: never Substance use: never Substance use type: does not use Lack of Transportation: No Lack of Food: Never True Current Housing: I Have Housing Concerned About Future Housing: No Difficulty Paying Gas/Electric Bills: No Difficulty Paying for Meds: No Currently Unemployed: No Difficulty w/ Childcare or Family Care: No Living arrangements: with family Additional living arrangements comments: Spouse Occupation/Education: occupation Additional occupation/education comments: [employer] Gender identity (if verbalized by the patient): Female Sexual Orientation (if Verbalized by the Patient): Straight or Heterosexual Spiritual care concerns: No Anes - Eval Final PreProcedure Day of Procedure 12/16/23 08:46 Patient weight: obese Heart: regular rate and rhythm Lungs: clear to auscultation Airway: Mallampati scale class II Neurological: alert and oriented Last oral intake: >/= 8 hours ASA classification: III Emergent: no Anesthetic plan: proceed Anesthesia type and monitoring: general GIVS and standard monitoring Results Review: All pre-operative results and documents have been reviewed as part of the pre-operative evaluation. Informed Consent: The patient's anesthetic plan and its attendant risks and benefits were discussed with the franky
--- NOTE | 2023-12-16 08:58 | PM.HPGS ---
History of Present Illness History of Present Illness Consent: Risks, benefits, and alternatives have been discussed and questions answered. Patient agrees to proceed with procedure. Chief complaint: neoplasm screening Narrative: Kathya Villegas is a 58 year old female here for screening colonoscopy Review of Systems Constitutional: Constitutional: Denies headache(s) and Denies weakness Eyes: Eyes: Denies blurry vision ENT: Reports Normal hearing present, Denies headache(s) and Denies neck pain Cardiovascular: Cardiovascular: Denies chest pain and Denies dyspnea Respiratory: Respiratory: Denies dyspnea Gastrointestinal: Gastrointestinal: Reports no additional gastrointestinal complaints Genitourinary: Genitourinary: Denies dysuria Musculoskeletal: Musculoskeletal: Denies neck pain Integumentary/Breasts: Skin/Breast: Denies dry skin Neurologic: Reports Normal hearing present, Denies headache(s) and Denies weakness Psychiatric: Psychiatric: Denies anxiety Endocrine: Endocrine: Denies change in body appearance Hematologic/Lymphatic: Hematologic/Lymphatic: Denies easy bleeding Allergic/Immunologic: Allergic/Immunologic: Denies urticaria PMF Past Medical History Medical History (Updated 12/16/23 @ 08:59 by Kyler Hodges MD) CAD (coronary artery disease) Chronic headaches Colon cancer screening Generalized anxiety disorder HTN (hypertension) Insomnia Mixed hyperlipidemia Mood swings Osteoarthritis Right shoulder strain Wears glasses Surgical History Surgical History H/O heart artery stent (~2014) History of delivery (~1991) History of laparoscopic cholecystectomy (~2018) History of tonsillectomy (~1978) History of total hysterectomy (~1994) History of total knee arthroplasty (~07/2014) Right Status post right partial knee replacement (~2013) Family History Family History Other Hypertension Social History Social History Social History: , 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 Her is getting chemo for colon cancer. Years smoked: 30 Smoking status: Current every day smoker Tobacco type: cigarettes Second hand tobacco smoke exposure: Yes Alcohol intake: never Substance use: never Substance use type: does not use Lack of Transportation: No Lack of Food: Never True Current Housing: I Have Housing Concerned About Future Housing: No Difficulty Paying Gas/Electric Bills: No Difficulty Paying for Meds: No Currently Unemployed: No Difficulty w/ Childcare or Family Care: No Living arrangements: with family Additional living arrangements comments: Spouse Occupation/Education: occupation Additional occupation/education comments: [employer] Gender identity (if verbalized by the patient): Female Sexual Orientation (if Verbalized by the Patient): Straight or Heterosexual Spiritual care concerns: No Meds Home Medications and Allergies Home Medications Medication Instructions Recorded Confirmed Type cholecalciferol (vitamin D3) 25 25 mcg PO DAILY 01/04/23 12/16/23 History mcg (1,000 unit) capsule rosuvastatin 10 mg tablet (Crestor) 20 mg PO DAILY 01/04/23 12/16/23 History albuterol sulfate 90 mcg/actuation 2 puff inhalation Q4-6H PRN 03/20/23 11/22/23 Rx aerosol inhaler shortness of breath or wheezing 30 days #8.5 grams lisinopril 10 1 tablet PO DAILY #90 tabs 08/15/23 12/16/23 Rx mg-hydrochlorothiazide 12.5 mg tablet fluoxetine 20 mg capsule 20 mg PO DAILY #90 caps 11/10/23 12/16/23 Rx Allergies Allergy/AdvReac Type Severity Reaction Status Date / Time Penicillins Allergy Mild hives Verified 11/22/23 09:39 Vital Signs Vital Signs - 24 hr 12/16/23 08:25 Temperature 97.1 F L Pulse Rate 84 Respira
[2023-12-16 09:22] VITALS: BP 101/57; PULSE 76; RESP 21; O2SAT 95
[2023-12-16 09:32] VITALS: BP 108/54; PULSE 77; RESP 18; O2SAT 97
[2023-12-16 09:42] VITALS: BP 107/66; PULSE 74; RESP 18; O2SAT 99
== END 2023-12-16 10:03 | disposition home or self-care (01) ==
PROVIDERS: PCP Family Medicine; Referring Provider Nurse Practitioner Family; Visit Provider Internal Medicine Gastroenterology
PROC: 0DJD8ZZ Inspection of Lower Intestinal Tract, Via Natural or Artificial Opening Endoscopic (ICD-10-PCS; CPT 45378; principal; 2023-12-16 09:30)
DX: Z12.11 Encounter for screening for malignant neoplasm of colon (principal); D12.4 Benign neoplasm of descending colon; K63.5 Polyp of colon; K64.8 Other hemorrhoids; I25.10 Atherosclerotic heart disease of native coronary artery without angina pectoris; I10 Essential (primary) hypertension; E78.2 Mixed hyperlipidemia; F41.1 Generalized anxiety disorder; Z79.51 Long term (current) use of inhaled steroids; Z95.5 Presence of coronary angioplasty implant and graft; F17.210 Nicotine dependence, cigarettes, uncomplicated; E66.9 Obesity, unspecified; Z68.35 Body mass index [BMI] 35.0-35.9, adult
CPT/HCPCS: 45380; 45385; 88305; J2704; J7120

== ENCOUNTER 2024-01-16 09:43 | Outpatient (CLI) | payer OTHER, SELFPAY ==
--- NOTE | ~2024-01-16 | CT_ITS ---
EXAMINATION: CT lung screening DATE: 01/16/2024 09:56 INDICATION: Z87.891 - Personal history of nicotine dependence TECHNIQUE: Computed tomography (CT) of the chest was performed without intravenous contrast. Addition al 3D reconstructions utilizing coronal maximum intensity projection (MIP) were performed. Automated exposure control and iterative reconstruction technique were employed. The dose-length product was 18 1.53 mGy-cm. COMPARISON: 01/13/2023 and 01/23/2022 FINDINGS: Mild emphysema. Unchanged flat lenticular nodule along the right minor fissure measuring 9 x 8 x 3 mm consistent with an intrafissural lymph node. Mild groundglass and reticular opacities in the depende nt lower lobes consistent with atelectasis. No new or enlarging pulmonary nodules, pneumonia, pulmona ry edema or pleural effusion. Heart size is normal. Atherosclerotic coronary artery calcific lesion. No pericardial effusion. Lipomatous hypertrophy of the atrial septum. Thoracic aorta is normal in alonso iber. No pathologically enlarged thoracic lymphadenopathy. 3.1 cm and 1.6 cm low-attenuation left adr enal adenomas. 2.7 cm exophytic cyst at the upper pole the left kidney. Moderate to severe lower thor acic predominant spondylosis. IMPRESSION: 1. Lung-RADS category 2: Benign appearance or behavior. Continue annual screening with noncontrast lo w-dose chest CT in 12 months. Reviewed, dictated and finalized at location B. IMPRESSION: 1. Lung-RADS category 2: Benign appearance or behavior. Continue annual screeni ng with noncontrast low-dose chest CT in 12 months.
== END 2024-01-16 09:44 | disposition home or self-care (01) ==
LOC: ANHIMG 09:44
PROVIDERS: PCP Family Medicine; Visit Provider Nurse Practitioner Family
DX: Z12.2 Encounter for screening for malignant neoplasm of respiratory organs (principal); Z87.891 Personal history of nicotine dependence
CPT/HCPCS: 71271

== ENCOUNTER 2024-04-09 10:22 | Outpatient (CLI) | payer OTHER, SELFPAY ==
[2024-04-09 10:33] LABS: Basophils Absolute Auto 0.1 K/mm3 (0.0-0.1); Basophils Percent Auto 0.6 % (0.2-1.2); Eosinophils Absolute Auto 0.2 K/mm3 (0-0.3); Eosinophils Percent Auto 2.3 % (0-4.4); Hematocrit 43.8 % (37.0-47.0); Hemoglobin 14.6 g/dL (12.0-15.0); Immature Granulocyte Absolute 0.04 K/mm3 (0.00-0.031); Immature Granulocyte Percent A 0.4 % (0-0.5); Lymphocytes Absolute Auto 2.81 K/mm3 (0.9-3.2); Lymphocytes Percent Auto 26.5 % (18.3-44.2); Mean Corpuscular HGB Conc 33.3 g/dl (32-36); Mean Corpuscular Hemoglobin 32.9 pg (26-34); Mean Corpuscular Volume 98.6 fl (80-100); Mean Platelet Volume 9.1 fl (7.4-10.4); Monocytes Absolute Auto 0.7 K/mm3 (0.1-0.6); Monocytes Percent Auto 6.9 % (2.6-8.5); Neutrophils Absolute Auto 6.7 K/mm3 (1.3-6.7); Neutrophils Percent Auto 63.3 % (45.5-73.1); Platelet Count Result 401 k/mm3 (150-375); Red Blood Count 4.44 M/mm3 (4.2-5.4); Red Cell Distribution Width 12.4 % (11.5-14.5); White Blood Count 10.6 K/mm3 (4.5-10.0)
[2024-04-09 12:08] LABS: Iron 101 ug/dL (37-170)
[2024-04-09 12:10] LABS: Anion Gap 6 mmol/L (4-12); Blood Urea Nitrogen 16 mg/dL (7-17); Calcium 10.3 mg/dL (8.4-10.2); Carbon Dioxide 24 mmol/L (22-30); Chloride 109 mmol/L (98-107); Estimated Glomerular Filt Rate > 60; Glucose 112 mg/dL (65-110); Magnesium 1.9 mg/dL (1.6-2.3); Potassium 3.9 mmol/L (3.4-5.0); Sodium 139 mmol/L (137-145)
[2024-04-09 12:19] LABS: Percent Iron Saturation 36 % (20-50)
[2024-04-09 13:15] LABS: Folic Acid 6.6 ng/mL (2.76->20)
== END 2024-04-09 10:23 | disposition home or self-care (01) ==
LOC: ANHLAB 10:24
PROVIDERS: Nurse Practitioner Family; PCP Family Medicine; Visit Provider Internal Medicine Hematology & Oncology
DX: E61.1 Iron deficiency (principal); E83.52 Hypercalcemia; E21.4 Other specified disorders of parathyroid gland; D72.829 Elevated white blood cell count, unspecified
CPT/HCPCS: 36415; 80048; 82607; 82728; 82746; 83540; 83550; 83735; 85025

== ENCOUNTER 2024-10-03 08:49 | Outpatient (CLI) | payer OTHER, SELFPAY ==
[2024-10-03 20:29] LABS: Basophils Absolute Auto 0.1 K/mm3 (0.0-0.1); Basophils Percent Auto 0.8 % (0.2-1.2); Eosinophils Absolute Auto 0.2 K/mm3 (0-0.3); Eosinophils Percent Auto 1.6 % (0-4.4); Hematocrit 44.1 % (37.0-47.0); Hemoglobin 14.6 g/dL (12.0-15.0); Immature Granulocyte Absolute 0.04 K/mm3 (0.00-0.031); Immature Granulocyte Percent A 0.4 % (0-0.5); Lymphocytes Absolute Auto 2.79 K/mm3 (0.9-3.2); Lymphocytes Percent Auto 25.1 % (18.3-44.2); Mean Corpuscular HGB Conc 33.1 g/dl (32-36); Mean Corpuscular Hemoglobin 32.4 pg (26-34); Mean Platelet Volume 9.8 fl (7.4-10.4); Monocytes Absolute Auto 0.6 K/mm3 (0.1-0.6); Monocytes Percent Auto 5.5 % (2.6-8.5); Neutrophils Absolute Auto 7.4 K/mm3 (1.3-6.7); Neutrophils Percent Auto 66.6 % (45.5-73.1); Platelet Count Result 361 k/mm3 (150-375); Red Cell Distribution Width 12.7 % (11.5-14.5); White Blood Count 11.1 K/mm3 (4.5-10.0)
[2024-10-03 20:58] LABS: Alanine Aminotransferase 15 U/L (6-35); Albumin Level 3.9 g/dL (3.5-5.1); Alkaline Phosphatase 105 U/L (38-126); Anion Gap 5 mmol/L (4-12); Aspartate Amino Transferase 28 U/L (14-36); Bilirubin,Total 0.5 mg/dL (0.2-1.3); Blood Urea Nitrogen 16 mg/dL (7-17); Calcium 9.9 mg/dL (8.4-10.2); Carbon Dioxide 28 mmol/L (22-30); Chloride 104 mmol/L (98-107); Cholesterol 142 mg/dL (0-200); Estimated Glomerular Filt Rate > 60; Glucose 97 mg/dL (65-110); HDL Direct 41 mg/dL; Potassium 3.9 mmol/L (3.4-5.0); Sodium 137 mmol/L (137-145); Triglycerides 150 mg/dL (<150)
[2024-10-03 21:09] LABS: LDL Cholesterol Direct 60 mg/dL
[2024-10-03 21:36] LABS: Hemoglobin A1C 5.5 % (<5.7)
[2024-10-03 22:53] LABS: Vitamin D 25 Hydroxy 29.7 ng/mL
[2024-10-03 23:06] LABS: Thyroid Stimulating Hormone Reflex 0.689 uIU/mL (0.465-4.68)
== END 2024-10-03 08:50 | disposition home or self-care (01) ==
LOC: ANHGOSHLAB 08:51
PROVIDERS: PCP Family Medicine; Visit Provider Family Medicine
DX: Z00.00 Encounter for general adult medical examination without abnormal findings (principal); E78.5 Hyperlipidemia, unspecified; I10 Essential (primary) hypertension; R73.9 Hyperglycemia, unspecified; F41.1 Generalized anxiety disorder; E53.8 Deficiency of other specified B group vitamins; E55.9 Vitamin D deficiency, unspecified
CPT/HCPCS: 36415; 80053; 80061; 82306; 82607; 83036; 84443; 85025

== ENCOUNTER 2024-10-09 11:23 | Outpatient (CLI) | payer OTHER, SELFPAY ==
[2024-10-09 11:34] LABS: Basophils Absolute Auto 0.1 K/mm3 (0.0-0.1); Basophils Percent Auto 0.8 % (0.2-1.2); Eosinophils Absolute Auto 0.3 K/mm3 (0-0.3); Eosinophils Percent Auto 3.3 % (0-4.4); Hematocrit 43.4 % (37.0-47.0); Hemoglobin 14.4 g/dL (12.0-15.0); Immature Granulocyte Absolute 0.04 K/mm3 (0.00-0.031); Immature Granulocyte Percent A 0.4 % (0-0.5); Lymphocytes Absolute Auto 2.46 K/mm3 (0.9-3.2); Mean Corpuscular HGB Conc 33.2 g/dl (32-36); Mean Corpuscular Volume 96.4 fl (80-100); Monocytes Absolute Auto 0.6 K/mm3 (0.1-0.6); Monocytes Percent Auto 6.1 % (2.6-8.5); Neutrophils Absolute Auto 5.7 K/mm3 (1.3-6.7); Neutrophils Percent Auto 62.4 % (45.5-73.1); Platelet Count Result 380 k/mm3 (150-375); Red Cell Distribution Width 12.4 % (11.5-14.5); White Blood Count 9.1 K/mm3 (4.5-10.0)
[2024-10-09 13:05] LABS: Iron 96 ug/dL (37-170)
[2024-10-09 13:06] LABS: Anion Gap 5 mmol/L (4-12); Blood Urea Nitrogen 18 mg/dL (7-17); Calcium 10.1 mg/dL (8.4-10.2); Carbon Dioxide 28 mmol/L (22-30); Chloride 106 mmol/L (98-107); Estimated Glomerular Filt Rate > 60; Glucose 85 mg/dL (65-110); Sodium 139 mmol/L (137-145)
[2024-10-09 13:14] LABS: Percent Iron Saturation 33 % (20-50)
[2024-10-09 15:18] LABS: Folic Acid 7.8 ng/mL (2.76->20)
== END 2024-10-09 11:24 | disposition home or self-care (01) ==
LOC: ANHLAB 11:24
PROVIDERS: PCP Family Medicine; Visit Provider Internal Medicine Hematology & Oncology
DX: D72.829 Elevated white blood cell count, unspecified (principal); E61.1 Iron deficiency
CPT/HCPCS: 36415; 80048; 82607; 82728; 82746; 83540; 83550; 85025

== ENCOUNTER 2025-09-11 13:23 | Outpatient (CLI) | payer OTHER, SELFPAY ==
--- NOTE | ~2025-09-11 | XR_ITS ---
EXAMINATION: XR hip RT 2V w AP pelvis, 09/11/2025 13:28 DIESEL CRANE OPERATOR HISTORY: M25.551 - Pain in right hip COMPARISON: No comparisons available. Findings: No acute fracture or malalignment. Moderate degenerative changes Soft tissues unremarkable. Impression: No acute fracture or malalignment. Reviewed, dictated and finalized at location P. EL CRANE OPERATOR Impression: No acute fracture or malalignment.
== END 2025-09-11 13:24 | disposition home or self-care (01) ==
PROVIDERS: PCP Family Medicine; Visit Provider Nurse Practitioner Family
DX: M25.551 Pain in right hip (principal)
CPT/HCPCS: 73502

== ENCOUNTER 2025-10-08 10:50 | Outpatient (CLI) | payer OTHER, SELFPAY ==
--- OUTSIDE RECORDS SUMMARY | 2025-10-08 11:51 | XMS_ITS | Clinical Summary ---
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 NEEDS OFFICE VISIT FOR FURTHER REFILLS. 07/20/2022 Active cholecalciferol (VITAMIN D-3) 32103 unit capsule Take 1 capsule (10,000 Units total) by mouth daily Active meloxicam (MOBIC) 15 mg tablet Take 1 tablet (15 mg total) by mouth every morning 10/17/2024 Active rosuvastatin (CRESTOR) 40 mg tabletIndicatio ns:Dyslipidemia ,Coronary artery disease involving [place] coronary artery of [place] heart without angina pectoris Take 1 tablet (40 mg total) by mouth daily 90 tablet 3 12/04/2024 Active nitroglycerin (NITROSTAT) 0.4 mg SL tabletIndicatio ns:Coronary artery disease involving [place] coronary artery of [place] heart without angina pectoris Place 1 tablet (0.4 mg total) under the tongue every 5 (five) minutes as needed for chest pain May repeat dose every 5 minutes for up to 3 doses total. 25 tablet 3 12/04/2024 Active Active Problems Problem Noted Date Diagnosed Date Severe obesity 12/04/2024 Class 2 severe obesity with serious comorbidity and body mass index (BMI) of 35.0 to 35.9 in adult 11/22/2023 ASCVD (arteriosclerotic cardiovascular disease) 10/22/2022 Essential hypertension 10/22/2022 Pulmonary nodule 10/22/2022 GERD (gastroesophageal reflux disease) 7 Coronary artery disease invo lving [place] coronary artery of [place] heart without angina pectoris 09/12/2017 Dyslipidemia 09/12/2017 Presence of stent in coronary artery 09/12/2017 Tobacco abuse 09/12/2017 Surgical History Surgery Date Site/Laterality Comments TONSILLECTOMY tonsillectomy HYSTERECTOMY Hysterectomy SECTION x3 OTHER SURGICAL HISTORY D&C Medical History Medical History Date Comments Adiposity obesity Osteoarthritis osteoarthritis Hx Other Medical anxiety/depress ion Chronic coronary artery disease Coronary Artery Disease Hx Other Medical tobacco use Hx Other Medical lumbar disc dis ease Family History Medical History Relation Name Comments Stent Father 2 Coronary Stent Placement; Relation Name Status Comments Father 1 Alive Father 2 Social History Tobacco Use Types Packs/Day Years Used Date Smoking Tobacco: Every Day Cigarettes 0.1 40 Smokeless Tobacco: Never Tobacco Cessation:Ready to Q uit: Not Asked; Counseling Given: Not Answered Alcohol Use Standard Drinks/Week Comments No 0 (1 standard drink = 0.6 oz pur e alcohol) AUDIT-C Answer Date Recorded Q1: How often do you have a drink containing alcohol? Never 10/22/2022 Q2: How many drinks containi ng alcohol do you have on a typical day when you are drinking? Patient does not drink Frequency of Binge Drinking Not on file 10/07 Comments Unknown Sex and Gender Information Value Date Recorded Sex Assigned at Not on file Legal Sex Female 2:59 AM BIT BENDER Gender Identity Not on file Sexual Orientation Not on file Last Filed Vital Signs Vital Sign Reading Time Taken Comments Blood Pressure 128/82 07/05/2025 1:25 PM CDT Pulse 89 07/05/2025 1:25 PM CDT Temperature - - Respiratory Rate 18 07/05/2025 1:25 PM CDT Oxygen Saturation 98% 07/05/2025 1:25 PM CDT Inhaled Oxygen Concentration - - Weight 110.7 kg (244 lb) 07/05/2025 1:25 PM CDT Height 175.3 cm (5' 9) 07/05/2025 1:25 PM CDT Body Mass Index 36.03 07/05/2025 1:25 PM CDT Plan of Treatment Health Maintenance Due Date Last Done Comments Breast Cancer Screening-Mammogram 1963 Colon Cancer Screening-Colonoscopy 1963 Depression Screening 1963 Hepatitis C Screening 1963 DTaP/Tdap/Td Vaccine (1 - Tdap) 1974 Hepatitis B Screening 1981 Regular Well Visit/Exam 18-64 1981 Pneumococcal vaccine <65 (1 of 2 - PCV) 1982 Zoster Vaccine (1 of 2) 2013 Covid-19 Vaccine (5 - 2024-2 6 season) 2025 05/28/2022, 09/04/2021, 01/26/2021, Additional history exists Influenza Vaccine (#1) 2025 , 11/07/2017, 10/15/2017, Additional history exists Insurance [facility] Care Teams Video Machines Mechanic Relationship Specialty Start Date End Date Karly Arana MD PCP - General Family Practice 10/22/22
--- OUTSIDE RECORDS SUMMARY | 2025-10-08 11:51 | XMS_ITS | Clinical Summary ---
Author Organization [facility] Kiya Adhikari Address [address] [place] [address] Care Team Providers Care Ice Cream Chef Name Role Phone Karly Arana MD Primary Care Provider Allergies Active Allergy Reactions Criticality Noted Date Comments Penicillins Anaphylaxis High 12/02/2023 Medications Cholecalciferol , Vitamin D3, 250 mcg (10,000 unit) Capsule Take 10,000 Units by mouth daily. Active FLUoxetine (PROzac) 20 mg capsule TAKE 1 CAPSULE BY MOUTH ONCE DAILY. NEEDS OFFICE VISIT FOR FURTHER REFILLS. 07/20/2022 Active lisinopril-hydr oCHLOROthiazide (ZESTORETIC) 10-12.5 mg tablet Take 1 Tablet by mouth daily. Active ferrous sulfate 325 mg (65 mg iron) tablet Take 325 mg by mouth daily. Active rosuvastatin (CRESTOR) 20 mg tablet Take 20 mg by mouth daily. Active Active Problems No known active problems Encounters Date Type Department Care Team Description 09/24/2025 External Device Data [facility] ABSTRACTION Provider, Abstract 09/04/2025 External Device Data [facility] ABSTRACTION Provider, Abstract 09/03/2025 External Device Data [facility] ABSTRACTION Provider, Abstract from Last 3 Months Family History Medical History Relation Name Comments No Known Problems Brother No Known Problems Daughter Heart Disease Father No Known Problems Mother No Known Problems Sister No Known Problems Son 1 No Known Problems Son 2 Relation Name Status Comments Brother Alive Daughter Alive Father Alive Mother Alive Sister Alive Son 1 Alive Son 2 Alive Social History Tobacco Use Types Packs/Day Years Used Date Smoking Tobacco: Former Cigarettes 0.3 45 Q uit: 09/30/2024 Smokeless Tobacco: Never Tobacco Cessation:Counseling Given: Not Answered Alcohol Use Standard Drinks/Week Comments Yes 0 (1 standard drink = 0.6 oz pur e alcohol) socially Comments Unknown Sex and Gender Information Value Date Recorded Sex Assigned at Not on file Legal Sex Female 2:18 PM CURING BIN OPERATOR Gender Identity Not on file Sexual Orientation Not on file Last Filed Vital Signs Vital Sign Reading Time Taken Comments Blood Pressure 107/65 10/10/2024 1:05 PM CURING BIN OPERATOR Pulse 75 10/10/2024 1:05 PM CURING BIN OPERATOR Temperature 36.6 C (97.8 F) 10/10/2024 1:05 PM CURING BIN OPERATOR Respiratory Rate 20 10/10/2024 1:05 PM CURING BIN OPERATOR Oxygen Saturation 97% 10/10/2024 1:05 PM CURING BIN OPERATOR Inhaled Oxygen Concentration - - Weight 108 kg (238 lb) 10/10/2024 1:05 PM CURING BIN OPERATOR Height 175.3 cm (5' 9) 10/17/2023 10:19 AM CURING BIN OPERATOR Body Mass Index 35.15 10/17/2023 10:19 AM CURING BIN OPERATOR Plan of Treatment Health Maintenance Due Date Last Done Comments Pre-Diabetes and Diabetes Screening 1963 DTAP/TDAP/TD VACCINES (1 - Tdap) 1982 HPV/Cotest (21-29) 1984 CERVICAL CANCER SCREENING 1993 HPV/Cotest (30-65) 1993 PAP SMEAR 1993 BREAST CANCER SCREENING 2003 COLORECTAL SCREENING 2008 Colorectal Cancer Screening 2008 FIT-DNA Q 3 years 2008 FIT/FOBT Q 1 year 2008 Flex Sig/CT Colonography Q 5 years 2008 ZOSTER VACCINE (1 of 2) 2013 INFLUENZA VACCINE (#1) 2025 RSV VACCINE (60+ or ) (1 - 1-dose 75+ series) 2038 Insurance [facility] CHOICE [id number] Care Teams Ice Cream Chef Relationship Specialty Start Date End Date Karly Arana MD [address] [place] [address] PCP - General Family Practice 10/17/23
--- OUTSIDE RECORDS SUMMARY | 2025-10-08 11:51 | XMS_ITS | Clinical Summary ---
Author Organization [facility] Address [address] [place] [id number] Care Team Providers Care Forex Trader Name Role Phone Unavailable Primary Care Provider Unavailabl e Social History Tobacco Use Types Packs/Day Years Used Date Smoking Tobacco: Never Assessed Comments Unknown Sex and Gender Information Value Date Recorded Sex Assigned at Not on file Legal Sex Female 6:37 PM CDT Gender Identity Not on file Sexual Orientation Not on file Last Filed Vital Signs Vital Sign Reading Time Taken Comments Blood Pressure 128/72 07/24/2013 1:40 PM CDT Pulse 67 07/12/2012 8:07 AM CDT Temperature - - Respiratory Rate - - Oxygen Saturation - - Inhaled Oxygen Concentration - - Weight 106.6 kg (235 lb) 07/24/2013 1:40 PM CDT Height 175.3 cm (5' 9) 07/12/2012 8:07 AM CDT Body Mass Index 34.7 07/12/2012 8:07 AM CDT Plan of Treatment Health Maintenance Due Date Last Done Comments Cervical Cancer Screening Pa p Smear (Age 30 to 64) Every 3 Years 1963 Colorectal Cancer Screening Colonoscopy (10 Years) 1963 Annual Physical 1966 Hepatitis C 1981 DTaP, Tdap and Td Vaccines ( 1 - Tdap) 1982 Cervical Cancer Screening Pa p with HPV Testing (Age 30 to 64) Every 5 Years 1993 Cervical Cancer Screening with HPV 1993 Mammogram Screening 2003 Pneumococcal Vaccine: 50+ Ye ars (1 of 1 - PCV) 2013 Zoster Vaccines (1 of 2) 2013 COVID-19 Vaccine ( - 2024-2 6 season) 2025 Influenza Adult (#1) 2025 RSV Immunization or 60+ Years (1 - 1-dose 75+ series) 2038 Hepatitis A Vaccines Aged Out No long er eligible based on patient's age to complete this topic Meningococcal B Vaccine Aged Out No l onger eligible based on patient's age to complete this topic Meningococcal Vaccine Aged Out No latonya gaston eligible based on patient's age to complete this topic RSV Immunizations Under 20 Months Aged Out No longer eligible based on patient's age to complete this topic
[2025-10-08 12:55] LABS: Hematocrit 46.8 % (37.0-47.0); Hemoglobin 15.3 g/dL (12.0-15.0); Immature Granulocyte Percent A 0.2 % (0-0.5); Lymphocytes Absolute Auto 2.76 K/mm3 (0.9-3.2); Mean Corpuscular HGB Conc 32.7 g/dl (32-36); Mean Corpuscular Hemoglobin 32.5 pg (26-34); Mean Corpuscular Volume 99.4 fl (80-100); Nucleated Red Blood Cells Absolute Auto 0.000 K/mm3 (0.0-0.012); Nucleated Red Blood Cells Perc 0.0 % (0.0-0.2); Platelet Count Result 391 k/mm3 (150-375); Red Blood Count 4.71 M/mm3 (4.2-5.4); White Blood Count 8.9 K/mm3 (4.5-10.0)
[2025-10-08 13:09] LABS: Alanine Aminotransferase 23 U/L (6-35); Albumin Level 4.3 g/dL (3.5-5.1); Alkaline Phosphatase 94 U/L (38-126); Anion Gap 4 mmol/L (4-12); Aspartate Amino Transferase 33 U/L (14-36); Bilirubin,Total 0.5 mg/dL (0.2-1.3); Blood Urea Nitrogen 18 mg/dL (7-17); Calcium 10.9 mg/dL (8.4-10.2); Carbon Dioxide 31 mmol/L (22-30); Chloride 105 mmol/L (98-107); Cholesterol 159 mg/dL (0-200); Estimated Glomerular Filt Rate > 60; Glucose 84 mg/dL (65-110); HDL Direct 51 mg/dL; Potassium 4.2 mmol/L (3.4-5.0); Sodium 140 mmol/L (137-145); Total Protein 7.7 g/dL (6.3-8.2); Triglycerides 125 mg/dL (<150)
[2025-10-08 13:38] LABS: Hemoglobin A1C 5.6 % (<5.7)
[2025-10-08 13:49] LABS: Thyroid Stimulating Hormone Reflex 0.519 uIU/mL (0.465-4.68)
[2025-10-08 14:02] LABS: Vitamin B12 336.0 pg/mL (239-931)
== END 2025-10-08 10:51 | disposition home or self-care (01) ==
LOC: ANHGOSHLAB 10:51
PROVIDERS: PCP Family Medicine; Visit Provider Family Medicine
DX: R73.9 Hyperglycemia, unspecified (principal); I10 Essential (primary) hypertension; I25.10 Atherosclerotic heart disease of native coronary artery without angina pectoris; Z00.00 Encounter for general adult medical examination without abnormal findings; E55.9 Vitamin D deficiency, unspecified; E78.5 Hyperlipidemia, unspecified; E53.8 Deficiency of other specified B group vitamins
CPT/HCPCS: 36415; 80053; 80061; 82306; 82607; 83036; 84443; 85025

== ENCOUNTER 2025-10-15 13:16 | Outpatient (CLI) | payer OTHER, SELFPAY ==
--- NOTE | ~2025-10-15 | CT_ITS ---
EXAMINATION:CT lung screening DATE: 10/15/2025 13:30 INDICATION: Smoking history, current smoker. Follow-up cancer screening. TECHNIQUE: Computed tomography (CT) of the chest was performed without intravenous contrast. Automated exposure control and iterative reconstruction technique were employed. The dose-length product (DLP) was 192.60 mGy-cm. COMPARISON: Previous cancer screening CT dated 01/16/2024. FINDINGS: Moderate gamez acinar emphysema of lungs. The appendix of the lungs with mild groundglass fibrosis. Stable noncalcified perifissural nodule in the right upper lung field, 9 x 6 mm in axial dimensions No lymphadenopathy or effusion. Multivessel coronary artery calcification involving left anterior descending, circumflex and right coronary arteries. Below the diaphragm, 1.8 cm size fat-containing left adrenal nodule is stable in appearance. However there is a second indeterminate 3 cm size nodule related to the lower aspect of the adrenal gland. This lesion is minimally larger compared with 01/16/2024 CT chest and probably larger compared with earlier CT dated 01/13/2023. IMPRESSION: 1. 1. Emphysematous changes predominantly involving upper lung de leon with stable groundglass interstitial changes in the upper lung de leon. 2. Stable multivessel coronary artery calcifications. Stable mild mediastinal adenopathy in the subcarinal region. Stable right upper lung field nodule, 9 x 6 mm in axial dimensions along the right minor fissure unchanged from 01/16/2024. Continue annual low-dose CT screening of the lungs. Lung RADS category 2 3. Below the diaphragm, in addition to fat-containing 1.8 cm nodule of the left adrenal gland, second 3 cm nodule is noted of indeterminate density and increased in size compared with earlier CT chest dated 01/13/2023. Further evaluation of this finding by CT scan of the abdomen with and without contrast, adrenal mass protocol is recommended. Reviewed, dictated and finalized at location T. [employer] AND WELLNESS SALES CONSULTANT IMPRESSION: 1. 1. Emphysematous changes predominantly involving upper lung de leon with stable groundglass interstitial changes in the upper lung de leon. 2. Stable multivessel coronary artery calcifications. Stable mild mediastinal a denopathy in the subcarinal region. Stable right upper lung field nodule, 9 x 6 mm in axial dimensions along the right minor fissure unchanged from 01/16/2024. Continue annual low-dose CT screening of the lungs. Lung RADS category 2 3. Below the diaphragm, in addition to fat-containing 1.8 cm nodule of the left adrenal gland, second 3 cm nodule is noted of indeterminate density and increa sed in size compared with earlier CT chest dated 01/13/2023. Further evaluation o f this finding by CT scan of the abdomen with and without contrast, adrenal mas s protocol is recommended.
== END 2025-10-15 13:17 | disposition home or self-care (01) ==
LOC: MICIMG 13:17
PROVIDERS: PCP Family Medicine; Visit Provider Family Medicine
DX: Z12.2 Encounter for screening for malignant neoplasm of respiratory organs (principal); Z87.891 Personal history of nicotine dependence
CPT/HCPCS: 71271

== ENCOUNTER 2025-11-05 13:56 | Outpatient (CLI) | payer OTHER, SELFPAY ==
--- OUTSIDE RECORDS SUMMARY | 2025-11-05 14:12 | XMS_ITS | Clinical Summary ---
Author Organization [facility] [address] Address [address] [place] [address] Care Team Providers Care Microbiology Professor Name Role Phone Karly Arana MD Primary [...] FURTHER REFILLS. 07/20/2022 Active cholecalciferol (VITAMIN D-3) 43011 unit capsule Take 1 capsule (10,000 Units total) by mouth daily Active meloxicam (MOBIC) 15 mg tablet Take 1 tablet (15 mg total) by mouth every morning 10/17/2024 Active rosuvastatin (CRESTOR) 40 mg tabletIndicatio ns:Dyslipidemia ,Coronary artery disease involving [place] coronary artery of [place] heart without angina pectoris Take 1 tablet (40 mg total) by mouth daily 90 tablet 3 12/04/2024 Active nitroglycerin (NITROSTAT) 0.4 mg SL tabletIndicatio ns:Coronary artery disease involving [place] coronary artery of [place] heart without angina pectoris Place 1 tablet [...] disease) 7 Coronary artery disease invo lving [place] coronary artery of [place] heart without angina pectoris 09/12/2017 Dyslipidemia 09/12/2017 [...] on file Legal Sex Female 2:59 AM VETERANS' COORDINATOR Gender Identity Not on file Sexual Orientation [...] , 11/07/2017, 10/15/2017, Additional history exists Insurance [facility] Care Teams Microbiology Professor Relationship Specialty Start Date End Date Karly Arana MD PCP - General Family Practice 10/22/22
--- OUTSIDE RECORDS SUMMARY | 2025-11-05 14:12 | XMS_ITS | Clinical Summary ---
Author Organization [facility] Address [address] [place] [id number] Care Team Providers Care Cost Estimating Engineer Name Role Phone Unavailable Primary Care Provider [...]
--- OUTSIDE RECORDS SUMMARY | 2025-11-05 14:12 | XMS_ITS | Clinical Summary ---
Author Organization [facility] Kiya Adhikari Address [address] [place] [address] Care Team Providers Care Multiple Spindle Router Operator Name Role Phone Karly Arana MD Primary [...] on file Legal Sex Female 2:18 PM SENIOR DB2 SYSTEMS PROGRAMMER Gender Identity Not on file Sexual Orientation Not on file Last Filed Vital Signs Vital Sign Reading Time Taken Comments Blood Pressure 107/65 10/10/2024 1:05 PM SENIOR DB2 SYSTEMS PROGRAMMER Pulse 75 10/10/2024 1:05 PM SENIOR DB2 SYSTEMS PROGRAMMER Temperature 36.6 C (97.8 F) 10/10/2024 1:05 PM SENIOR DB2 SYSTEMS PROGRAMMER Respiratory Rate 20 10/10/2024 1:05 PM SENIOR DB2 SYSTEMS PROGRAMMER Oxygen Saturation 97% 10/10/2024 1:05 PM SENIOR DB2 SYSTEMS PROGRAMMER Inhaled Oxygen Concentration - - Weight 108 kg (238 lb) 10/10/2024 1:05 PM SENIOR DB2 SYSTEMS PROGRAMMER Height 175.3 cm (5' 9) 10/17/2023 10:19 AM SENIOR DB2 SYSTEMS PROGRAMMER Body Mass Index 35.15 10/17/2023 10:19 AM SENIOR DB2 SYSTEMS PROGRAMMER Plan of Treatment Health Maintenance Due Date Last Done Comments DTAP/TDAP/TD VACCINES (1 - Tdap) 1982 HPV/Cotest [...] (1 - 1-dose 75+ series) 2038 Insurance [facility] CHOICE [id number] Member Subscriber Plan / Payer (Ef fective 2021-Present) Name:Kathya Villegas Relation to Subscriber:Self Name:Kathya Villegas Payer ID:[id number] (NAIC) Type:HMO Address: [place] [id number] Care Teams Multiple Spindle Router Operator Relationship Specialty Start Date End Date Karly Arana MD [address] [facility] [place] [address] PCP - General Family Practice 10/17/23
[2025-11-05 18:43] LABS: Parathyroid Intact 73.1 pg/mL (14.5-75.2)
[2025-11-06 13:08] LABS: Calcium, Ionized 5.7 mg/dL (4.5-5.6)
== END 2025-11-05 13:57 | disposition home or self-care (01) ==
LOC: ANHGOSHLAB 13:57
PROVIDERS: PCP Family Medicine; Visit Provider Family Medicine
DX: E83.52 Hypercalcemia (principal)
CPT/HCPCS: 36415; 82330; 83970